=== PATIENT | female | born 1930 | race Caucasian/White ===

== ENCOUNTER 2018-02-01 10:21 | Emergency (ER) | payer OTHER ==
--- NOTE | 2018-02-01 10:36 | ED.PDOC ---
General ED Provider: Dr. LEIDY GALVAN Chief Complaint: Chest Wall Injury/Pain Stated Complaint: Sent from the CO, Dr Chaudhry, patient. dr Weir covering him. when called him patient was sent here for the right side chest injury and bruising. Patient has dementia, verbal, says she is hurting in the right shoulder when moved. Time Seen by Physician: 10:33 Mode of Arrival: Stretcher Nursing and Triage Documentation Reviewed and Agree: Yes Reviewed sepsis parameters & appropriate labs ordered?: Yes System Inflammatory Response Syndrome: Not Applicable Sepsis Protocol: For patient's 13 years and over: Temp is 96.8 and below OR 101 and greater Pulse >90 BPM Resp >20/minute Acutely Altered Mental Status Are patient's symptoms suggestive of a new infection, such as: -Pneumonia -Skin, Soft Tissue -Endocarditis -UTI -Bone, Joint Infection -Implantable Device -Acute Abdominal Infection -Wound Infection -Meningitis -Blood Stream Catheter Infection -Unknown Trauma/Injury Complaint Exam - Truncal Trauma Complaint/Exam Location of Pain: Reports: Right, Upper, Anterior, Chest Symptoms Are: Still present Onset of Pain: Reports: Hours Initial Severity: Mild Current Severity: Mild Mechanism: Reports: Unknown (per residential they found her today like that.) Aggravating: Reports: Movement (right shoulder movemnt made her hurt) Alleviating: Reports: Rest Associated Signs and Symptoms: Reports: Chest pain (right upper chest) Related Surgical History: Reports: None Crepitus Present: No Diminished Breath Sounds: No Reproducible Pain at: yes Muffled Heart Sounds Present: No Paradoxical Chest Wall Movement Present: No Abdominal Guarding Present: No Abdominal Rigidity Present: No Referred Shoulder Pain (Kehr's Sign) Present: No Skin Findings: Present: Abrasion, Ecchymosis Differential Diagnoses: Chest Wall Abrasion Review of Systems - Review Of Systems Constitutional: Reports: No symptoms Eyes: Reports: No symptoms Ears, Nose, Mouth, Throat: Reports: No symptoms Respiratory: Reports: No symptoms Cardiac: Reports: Chest pain GI: Reports: No symptoms : Reports: No symptoms Musculoskeletal: Reports: Joint pain Skin: Reports: No symptoms Neurological: Reports: No symptoms Endocrine: Reports: No symptoms Hematologic/Lymphatic: Reports: No symptoms All Other Systems: Reviewed and Negative Past Medical History - Past Medical History Previously Healthy: No Endocrine: Reports: DM 2, Dyslipidemia Cardiovascular: Reports: Hypertension Respiratory: Reports: None Hematological: Reports: None Gastrointestinal: Reports: None Genitourinary: Reports: None Neuro/Psych: Reports: Dementia Musculoskeletal: Reports: Arthritis, Back Pain Cancer: Reports: None - Surgical History 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 - Family History Family History: Reports: Unknown - Social History Smoking Status: Former smoker Hx Substance Use: No Alcohol Screening: None Physical Exam - Physical Exam Appearance: Well-appearing Eyes: EOMI, Conjunctiva clear ENT: Ears normal, Nose normal, Oropharynx normal Respiratory: Airway patent, Breath sounds clear, Breath sounds equal, Breath sounds diminished, Respirations nonlabored Cardiovascular: RRR, Pulses normal, No rub, No murmur GI/: Soft, Nontender, No masses, Bowel sounds normal, No Organomegaly Musculoskeletal: Normal strength, ROM intact, No edema, No calf tenderness Skin: Warm (bruising to right armpit, right breast lateral side, ), Dry, Normal color Neurological: Sensation intact, Motor intact (stiff joints), Reflexes intact, Cranial nerves intact, Alert Psychiatric: Affect appropriate, Mood appropriate Interpretation - Radiology Interpretation Radiology Results: Positive Exam Interpreted: CT Scan Critical Care Note - Critical Care Note Total Time (mins): 30 Course - Course Orders, Labs, Meds: Orders Category Date Time Status CT CHEST W/O CONTRAST Stat RADS 02/01/18 10:37 Completed RIBS, UNILATERAL RIGHT Stat RADS 02/01/18 10:32 Completed SHOULDER, RIGHT 1V Urgent RADS 02/01/18 10:32 Taken Vital Signs: Temp Pulse Resp BP Pulse Ox 02/01/18 10:32 96.7 F L 71 18 123/60 98 Departure - Departure Time of Disposition: 11:37 Disposition: TSF OTHER Discharge Problem: Chest wall pain Instructions: Hematoma (ED) Condition: Stable Pt referred to PMD for follow-up: Yes IPMP verified?: No Additional Instructions: Watch for signs of infection, Tylenol prn f/u with PMD in 3-4 days to make sure the Hematoma is resolving. Allergies/Adverse Reactions: Allergies No Known Allergies Allergy (Verified 02/01/18 10:47) Home Medications: Ambulatory Orders Atorvastatin Calcium [Lipitor] 10 mg PO BEDTIME 03/04/13 Citalopram Hydrobromide [Citalopram HBr] 30 mg PO DAILY 03/04/13 Donepezil HCl [Aricept] 10 mg PO BEDTIME 03/04/13 Insulin Glargine,Hum.rec.anlog [Lantus] 26 unit SQ BEDTIME 03/04/13 Insulin Regular, Human [Novolin R Insulin] 3 - 15 unit SQ PRN 03/04/13 Aspirin [Adult Low Dose Aspirin EC] 81 mg PO DAILY 12/02/15 Cholecalciferol (Vitamin D3) [Vitamin D3] 1,000 unit PO DAILY 12/02/15 Ferrous Sulfate 325 mg PO BID 12/02/15 Hydrocodone Bit/Acetaminophen [[place] 5-325] 1 tab PO BID PRN 12/02/15 Memantine HCl [Namenda Xr] 28 mg PO DAILY 12/02/15 Omeprazole Magnesium 20 mg PO DAILY 12/02/15 Promethazine HCl [Phenergan Tab] 12.5 mg PO Q12H PRN 12/02/15 Acetaminophen [Tylenol] 650 mg PO Q4H PRN 01/16/16 Furosemide [Lasix Tab] 20 mg PO EVERY OTHER DAY #15 tablet 01/19/16 Disposition Discussed With: Patient
[2018-02-01 11:02] VITALS: BP 123/60; TEMP 96.7; BMI 23.7
--- NOTE | 2018-02-01 11:15 | CT ---
EXAM: CT scan of the chest without contrast HISTORY: Right chest injury TECHNIQUE: Helical imaging of the chest was performed without contrast. 5 mm thin axial images and coronal and sagittal images were provided for interpretation. FINDINGS: The heart is normal size. There is atherosclerotic calcification of the thoracic aorta an d coronary arteries. There is a small to moderate-sized hiatal hernia. Lungs are clear. There does a ppear to be swelling of the lateral aspect of the pectoralis major muscle on the right. The findings are seen on axial image number 28. No lytic or blastic lesions are seen within the osseous structure s. Midline sternotomy wires are seen. IMPRESSION: There does appear to be swelling of the lateral aspect of the right pectoralis major mus mickey and this may represent a intramuscular hematoma. No other acute traumatic abnormalities are seen within the thorax.
--- NOTE | 2018-02-01 11:20 | DI ---
EXAM: Three views of the right ribs HISTORY: Injury, pain TECHNIQUE: AP, oblique views of the right ribs were obtained. FINDINGS: No acute fractures are seen. The right lung appears clear. There is no pleural separatio n. IMPRESSION: No evidence of acute fracture seen within the right ribs.
--- NOTE | 2018-02-01 14:36 | DI ---
EXAM: Single view right shoulder. HISTORY: Injury and pain COMPARISON: Right rib radiographs 02/01/2018 FINDINGS: Examination is limited by single view exam. No evidence of displaced fracture is seen. Mi ld right acromioclavicular joint space narrowing is seen. Visualized lung zones appear clear. OPINION: No acute osseous abnormality on this limited exam. Mild right acromioclavicular osteoarthritis.
== END 2018-02-01 13:00 | disposition short-term general hospital (02) ==
LOC: ED 10:21
DX: S20.211A Contusion of right front wall of thorax, initial encounter (principal); M25.511 Pain in right shoulder; F03.90 Unspecified dementia, unspecified severity, without behavioral disturbance, psychotic disturbance, mood disturbance, and anxiety; S20.319A Abrasion of unspecified front wall of thorax, initial encounter
CPT/HCPCS: 99283